=== PATIENT | female | born 1970 | race Asian ===

== ENCOUNTER 2022-03-19 09:33 | Outpatient (REF) | payer OTHER, SELFPAY ==
[2022-03-19 11:08] LABS: MANUAL DIFF FLAG NO
[2022-03-19 11:18] LABS: Basophils Percent Auto 0.7 % (0-2); Eosinophils Absolute Auto 0.1 X10*3/uL (0.0-0.4); Hematocrit 40.5 % (37.0-47.0); Hemoglobin 13.4 g/dl (12.0-16.0); Imm Gran Abs Auto 0.01 X10*3/uL (0.00-0.03); Imm Gran Pct Auto 0.2 % (0.0-0.4); Lymphocytes Absolute Auto 1.6 X10*3/uL (1.2-4.9); Lymphocytes Percent Auto 28.6 % (20-40); Mean Corpuscular HGB Conc 33.1 g/dl (31.0-35.0); Mean Corpuscular Hemoglobin 29.4 pg (27.0-33.0); Mean Corpuscular Volume 88.8 fL (80.0-98.0); Mean Platelet Volume 10.8 fL (9.4-12.3); Monocytes Absolute Auto 0.5 X10*3/uL (0.1-1.2); Neutrophils Absolute Auto 3.4 x10*3/uL (2.0-8.3); Neutrophils Percent Auto 60.5 % (45-73); Platelet Count 218 X10*3/uL (160-400); Red Blood Count 4.56 X10*6/uL (4.20-5.50); Red Cell Distribution Width 13.2 % (11.0-16.0); White Blood Count 5.6 X10*3/uL (4.8-10.8)
[2022-03-19 11:23] LABS: Appearance Urine Clear; Color Urine Yellow; Glucose Urine UA Negative (Negative); Leukocyte Esterase Urine Negative (Negative); Nitrite Urine Negative (Negative); PH 6.5 (5.0-9.0); Specific Gravity - Urine 1.015 (1.005-1.025); Urine Blood Negative (Negative); Urine Ketones Negative (Negative); Urine Protein Negative (Neg-Trace)
[2022-03-19 11:51] LABS: Free T4 (Free Thyroxine) 1.24 ng/dL (0.71-1.85); Thyroid Stimulating Hormone 1.08 uIU/mL (0.32-4.0)
[2022-03-19 11:52] LABS: Alanine Aminotransferase 8 U/L (0-31); Albumin Level 4.5 g/dL (3.5-5.0); Alkaline Phosphatase 52 U/L (39-117); Anion Gap 13 (12-20); Aspartate Amino Transferase 15 U/L (5-31); Bilirubin Total 0.7 mg/dL (0.0-1.0); Blood Urea Nitrogen 14 mg/dL (9-16); Carbon Dioxide 25 mmol/L (22-29); Chloride 107 mmol/L (96-108); Cholesterol 185 mg/dL; Estimated Glomerular Filt Rate > 60; Glucose Fasting 92 mg/dL (60-99); HDL Cholesterol 59 mg/dL; LDL Cholesterol Calculated 113 mg/dl; Potassium 3.7 mmol/L (3.3-5.1); Sodium 141 mmol/L (135-145); Total Protein 7.4 g/dL (6.5-8.0); Triglycerides 68 mg/dL
== END 2022-03-19 09:34 | disposition home or self-care (01) ==
LOC: HO.HMGCLDS 09:33
PROVIDERS: PCP Internal Medicine; Visit Provider Internal Medicine
DX: E78.00 Pure hypercholesterolemia, unspecified (principal); E03.9 Hypothyroidism, unspecified; I10 Essential (primary) hypertension
CPT/HCPCS: 36415; 80053; 80061; 81003; 84439; 84443; 85025

== ENCOUNTER → 2022-12-09 10:48 | Outpatient (BNVA) | payer OTHER, SELFPAY | PROVIDERS: Visit Provider Physician Assistant ==

== ENCOUNTER 2023-01-05 08:13 | Day surgery (SDC) | payer OTHER, SELFPAY ==
[2023-01-01 15:51] VITALS: BMI 23.9
--- NOTE | 2023-01-04 10:11 | P.CONAN_ITS ---
Documented by User: Earnestine Mtz NP 01/04/23 10:11 HPI - Anesthesia Eval Consult details Narrative: 52yo F for Upper Endoscopy PMFSH Active Problems Active Problems: All Active Problems (Updated 12/16/22 @ 15:25 by Mark Painting MD) GERD with esophagitis (Acute) Annual physical exam (Acute) Tendinitis of left rotator cuff (Acute) GERD without esophagitis (Acute) Acquired hypothyroidism (Acute) Pure hypercholesterolemia (Acute) Past Medical History Medical History Acquired hypothyroidism GERD without esophagitis History of benign breast tumor History of Helicobacter pylori infection Pure hypercholesterolemia Tendinitis of left rotator cuff Surgical History Surgical History Hx of colonoscopy Hx of esophagogastroduodenoscopy Social History Social History Housing: House Alcohol intake: never Patient Tobacco Use Status: Never used Tobacco e-Cigarette/Vaping Use: Never Used Second Hand Smoke Exposure: No Use of substances other than those prescribed or required for medical reasons: No Are you DNR?: No Advance Directives: No Advance Directives Information Provided: Yes service: No Current occupational status: employed Cognitive needs: No Hearing needs: No Vision needs: No Meds Allergies Allergy/AdvReac Type Severity Reaction Status Date / Time No Known Allergies Allergy Verified 01/05/23 08:50 Home Medications Medication Instructions Recorded Confirmed Last Taken Type atorvastatin 20 mg tablet 20 mg PO DAILY 06/24/20 01/05/23 Unknown History levothyroxine 112 mcg tablet 112 mcg PO DAILY 06/24/20 01/05/23 Unknown History Exam Exam Date and Time: January 04, 2023 1011 Height,Weight and Vital Signs: Height 5 ft 3 in Weight 61.235 kg Assessment and Plan Assessment Anesthesia Assessment: Chart Reviewed Documented by User: Yanelis Negro MD 01/05/23 10:01 [facility] Active Problems Active Problems: All Active Problems (Updated 01/05/23 @ 09:10 by Yanelis Negro MD) GERD with esophagitis (Acute) Annual physical exam (Acute) Tendinitis of left rotator cuff (Acute) GERD without esophagitis (Acute) Acquired hypothyroidism (Acute) Pure hypercholesterolemia (Acute) Past Medical History Medical History Acquired hypothyroidism GERD without esophagitis History of benign breast tumor History of Helicobacter pylori infection Pure hypercholesterolemia Tendinitis of left rotator cuff Family History Family history of problems with anesthesia: No Surgical History Surgical History Hx of colonoscopy Hx of esophagogastroduodenoscopy History of Problems with Anesthesia: No Social History Social History Housing: House Alcohol intake: never Patient Tobacco Use Status: Never used Tobacco e-Cigarette/Vaping Use: Never Used Second Hand Smoke Exposure: No Use of substances other than those prescribed or required for medical reasons: No Are you DNR?: No Advance Directives: No Advance Directives Information Provided: Yes service: No Current occupational status: employed Cognitive needs: No Hearing needs: No Vision needs: No Meds Allergies Allergy/AdvReac Type Severity Reaction Status Date / Time No Known Allergies Allergy Verified 01/05/23 08:50 Home Medications Medication Instructions Recorded Confirmed Last Taken Type atorvastatin 20 mg tablet 20 mg PO DAILY 06/24/20 01/05/23 Unknown History levothyroxine 112 mcg tablet 112 mcg PO DAILY 06/24/20 01/05/23 Unknown History Exam Height,Weight and Vital Signs: Height 5 ft 3 in Weight 61.235 kg Vital Signs Temp Pulse Resp BP Pulse Ox O2 Del Method 01/05/23 09:06 97.1 F 68 15 140/85 H 98 Room Air Airway Mallampati Class: II TM Dist: >3cm Neck ROM: Full Loose/Missing/Broken Teeth: No (Denies broken, loose, missing teeth) Heart: RRR Lungs: CTAB Assessment and Plan Final Anesthetic Review Family History of Problems with Anesthesia: No History of Problems with Anesthesia: No NPO: Yes ASA Class: II Final Preanesthetic Review: No Changes in Pt Med Stat, Meds/Allgs Chart Reviewed, Consent Obtained/Reviewed and Anes Risks/Benef Reviewed Patient Risk: Low Procedure Risk: Low Assessment/Block/Sedation in SS: Assess/Block/Sedation-SS Anesthetic Plan Anesthetic Plan: MAC: Disposition: Standard PACU
[2023-01-05 09:06] VITALS: BP 140/85; PULSE 68; RESP 15; TEMP 36.2; O2SAT 98
--- NOTE | 2023-01-05 09:11 | MHC.SHP ---
Pre-Procedural Eval Section A Date of Service: 01/05/23 The patient is an INPATIENT: No Changes since office visit: Yes Patient answered all questions; No Cold of Flu in the past 2 weeks, No New Medical Problems and No Changes in Medication The History & Physical has been completed within 30 days and I have reviewed it.: Yes Section B Chief Complaint: abdominal pain/bloating, GERD, burning sensation Allergies: Allergies Allergy/AdvReac Type Severity Reaction Status Date / Time No Known Allergies Allergy Verified 01/05/23 08:50 Plan I have reviewed the history and physical and performed a pertinent physical examination on my patient. No changes have occurred unless specified. Time Spent With Patient Time: Total time managing care of this patient today ____ minutes.
--- NOTE | 2023-01-05 09:29 | W.PM.OPN ---
Operative Note Operative Note Date of Service: 01/05/23 Narrative: FLEXIBLE TRANSORAL UPPER GASTROINTESTINAL ENDOSCOPY WITH BIOPSIES Pre-op diagnosis: abdominal pain/bloating, GERD, burning sensation, atypical chest pain Pt reports she had a negative EGD 2 yrs ago. Post-op diagnosis: GERD, gastritis Endoscopist:Atul Uriostegui MD Anesthesia:?MAC Consent: Indications for the procedure and potential complications of bleeding, perforation, reaction to medications and missed diagnosis were discussed with the patient with the help of a Mandarin maintenance technician 3rd shift and informed consent was obtained. Instrument: Olympus GIF H 190 mid size upper endoscope Monitoring: Vital signs and clinical assessment, continuous EKG monitoring, Pulse oximetry, Carbon Dioxide monitoring and blood pressure monitoring were done throughout the procedure. Procedure: The patient was placed in the left lateral decubitis position and pre-procedure medications were administered and a bite block was placed. The endoscope was inserted into the mouth and advanced under direct vision to the third part of duodenum. A careful inspection was made as the upper endoscope was withdrawn including a retroflexed examination of the proximal stomach; Findings and interventions are described below. Findings: Larynx: Normal Esophagus: GE junction at 36 cms. No esophagitis or Davey's. Biopsies were obtained from proximal esophagus (to check for EOE) and from distal esophagus to check for esophagitis. Stomach: Mild gastric erythema. Biopsies were obtained. Grade 2 flap valve on retroflexed examination of the cardia. Duodenum: Normal bulb and descending duodenum Intervention: Biopsies as noted above Impression and Post Procedure Diagnosis: Endoscopy Findings: ESOPHAGUS: GE junction at 36 cms. No esophagitis or Davey's. Biopsies were obtained from proximal esophagus (to check for EOE) and from distal esophagus to check for esophagitis. STOMACH: Mild antral gastritis DUODENUM: Normal - biopsied to check for celiac sprue Plan: Await pathology results Patient has an appointment on 01/27/23 in the GI Clinic with LAURA Clark . Above findings were reviewed with the patient and GERD handout was given in the discharge area
[2023-01-05] MEDS: Lactated Ringers 1,000 ML 100 ML IVCONT (09:31)
[2023-01-05 10:15] VITALS: BP 109/66; PULSE 57; RESP 16; TEMP 36.6; O2SAT 97
[2023-01-05 10:30] VITALS: BP 130/70; PULSE 53; RESP 16; O2SAT 99
[2023-01-05 10:45] VITALS: BP 137/75; PULSE 53; RESP 16; TEMP 36.2; O2SAT 100
== END 2023-01-05 11:23 | disposition home or self-care (01) ==
PROVIDERS: PCP Internal Medicine; Visit Provider Internal Medicine Gastroenterology
PROC: 0DJ08ZZ Inspection of Upper Intestinal Tract, Via Natural or Artificial Opening Endoscopic (ICD-10-PCS; CPT 43235; principal; 2023-01-05 10:00)
DX: K21.9 Gastro-esophageal reflux disease without esophagitis (principal); K29.70 Gastritis, unspecified, without bleeding; R07.89 Other chest pain; E78.00 Pure hypercholesterolemia, unspecified; Z79.899 Other long term (current) drug therapy
CPT/HCPCS: 43239; 88305; 88342

== ENCOUNTER → 2023-01-05 08:13 | Outpatient (BNV) | payer OTHER, SELFPAY | PROVIDERS: PCP Internal Medicine; Visit Provider Internal Medicine Gastroenterology | DX: K29.70 Gastritis, unspecified, without bleeding (principal); K21.9 Gastro-esophageal reflux disease without esophagitis | CPT/HCPCS: 43239 ==

== ENCOUNTER 2023-01-27 11:51 | Outpatient (AMB) | payer OTHER, SELFPAY ==
--- NOTE | 2023-01-27 11:56 | MHC.OFFVIS ---
Intake Vital Signs 01/27/23 12:00 Height 5 ft 2 in Weight 134 lb BMI 24.5 BP 141/73 H Blood Pressure Location Lt brachial Position Sitting Pulse 71 Intake Visit Reasons: S/p egd-Moody Intake Note: Patient follow up for GERD and EGD results. Patient cc: abdominal pain on and off, and heartburn. Denies any other GI issues. Exterior Interior Specialist Required: Yes Exterior Interior Specialist Name: Nelson [phone] Accompanied by: Self / Same As Patient Allergies No Known Allergies Allergy (Verified 01/27/23 11:56) Medication List - Last Reconciled 01/27/23 by Liana Domingo PA-C atorvastatin 20 mg PO DAILY famotidine 40 mg PO BEDTIME 30 days levothyroxine 112 mcg PO DAILY pantoprazole 40 mg PO DAILY 30 days HPI HPI Comments History of Present Illness Details A 52 y/0o f/u after EGD for reflux- persistent despite ppi and H2 vivian-she does not eat spicy food- reflux-bloating- she is unable to -identify anything specific She is very worried about H pylori she has had in the past. Review procedure report as well as pathology no H pylori Appetite is good she has been eating bland foods No nausea, vomiting, hematemesis, hematochezia fever or chills PFSH Medical History (Updated 01/27/23 @ 12:27 by Liana Domingo PA-C) Acquired hypothyroidism GERD without esophagitis History of benign breast tumor History of Helicobacter pylori infection Pure hypercholesterolemia Tendinitis of left rotator cuff Surgical History Hx of colonoscopy Hx of esophagogastroduodenoscopy Social History Housing: House Alcohol intake: never Patient Tobacco Use Status: Never used Tobacco e-Cigarette/Vaping Use: Never Used Second Hand Smoke Exposure: No service: No Current occupational status: employed Cognitive needs: No Hearing needs: No Vision needs: No Review of Systems Const All systems reviewed & are unremarkable except as noted in HPI and below Card Denies chest pain and Denies dyspnea Resp Denies dyspnea GI Denies abdominal pain, Reports bloating and Reports heartburn Physical Exam Vital Signs: Last Vital Signs Pulse 71 01/27/23 12:00 BP 141/73 H 01/27/23 12:00 BMI result Body Mass Index 24.5 Const General: cooperative, healthy appearing, comfortable and no acute distress Orientation/consciousness: patient oriented x3 Limitations: language barrier Resp Effort & Inspection: normal respiratory effort and able to speak in complete sentences Skin General skin exam: no rashes or lesions noted Neuro General: patient oriented x3 Extrem General: Yes full ROM Psych Appearance: grossly normal and well kempt Mental Status: mental status grossly normal Speech and movement: Normal speech and movement present and Clear speech present Affect: normal affect Attitude: cooperative Thought process: Normal thought process present Thought content: Normal thought content present Results Reviewed Results Reviewed: Name:?Von Barahona Age/Sex: 52/F Attending: Almas Uriostegui MD : 1970 Submitted by: Almas Uriostegui MD Copies to: Mark Painting MD MR #: [id number] ? Status: [facility] Collected: 01/05/23 Location: [facility] Received: 01/05/23 Diagnosis A.? Small bowel, biopsy:? Duodenal mucosa within normal limits. B.? Stomach, antrum, biopsy:? Antral-type mucosa with mild chronic inactive inflammation; no Helicobacter organisms seen. C.? Esophagus, distal, biopsy:? Squamous epithelium within normal limits; no inflammation seen. D.? Esophagus, proximal, biopsy:? Squamous epithelium within normal limits; no inflammation seen. Clinical History Pre-Op Dx:? Abdominal pain bloating, GERD, burning sensation Post-Op Dx: Gastritis and GERD Microscopic Description A-D.? Microscopic sections reviewed.? Immunostain for H. pylori is non-reactive (B). Endoscopy Findings: ESOPHAGUS: GE junction at 36 cms. No esophagitis or Davey's. Biopsies were obtained from proximal esophagus (to check for EOE) and from distal esophagus to check for esophagitis. STOMACH: Mild antral gastritis DUODENUM: Normal - biopsied to check for celiac sprue Plan: Await pathology results Patient has an appointment on 01/27/23 in the GI Clinic with LAURA Clark . Above findings were reviewed with the patient and GERD handout was given in the discharge area Assessment & Plan Assessment & Plan (1) Bloating: Comment: Dietary modifications, food diary Code(s): R14.0 - Abdominal distension (gaseous) Plan: Low FODMAP literature given Plan Stop ppi today May continue pepcid- stop 3 days before HP UBT. Orders: Orders H Pylori Breath Test 2 Weeks A04.8 - Other specified bacterial intestinal infections Patient Instructions: Pleasant 52-year-old female history of H pylori negative on EGD, a presents with reflux, bloating Reviewed procedure report and pathology, opportunity for question We will get H pylori breath test in 2 weeks, she will stop PPI today, she may continue Pepcid and discontinue 3 days prior to you BT. She will be NPO for 1 hour prior to testing Meanwhile she will follow low FODMAP Try to identify and avoid culprits Encouraged to call questions or concerns Coding Level of Care Code Est Pt Level 3 (82867) Diagnoses Bloating R14.0 Time Spent (min) 30 Comment [id number]
[2023-01-27 12:00] VITALS: BP 141/73; PULSE 71; BMI 24.5
== END 2023-01-27 13:56 | disposition home or self-care (01) ==
PROVIDERS: PCP Internal Medicine; Visit Provider Physician Assistant
DX: R14.0 Abdominal distension (gaseous) (principal)
CPT/HCPCS: 99213

== ENCOUNTER → 2023-01-27 11:51 | Outpatient (BNVA) | payer OTHER, SELFPAY | PROVIDERS: PCP Internal Medicine; Visit Provider Physician Assistant ==

== ENCOUNTER 2023-02-10 08:48 | Outpatient (REF) | payer OTHER, SELFPAY ==
[2023-02-12 12:54] LABS: H Pylori Breath Test Negative (Negative)
== END 2023-02-10 08:49 | disposition home or self-care (01) ==
LOC: HO.LNP 08:48
PROVIDERS: PCP Internal Medicine; Visit Provider Physician Assistant
DX: A04.8 Other specified bacterial intestinal infections (principal)
CPT/HCPCS: 83013; 99211

== ENCOUNTER 2023-03-25 09:54 | Outpatient (REF) | payer OTHER, SELFPAY ==
[2023-03-25 13:13] LABS: Appearance Urine Clear; Color Urine Yellow; Glucose Urine UA Negative (Negative); Leukocyte Esterase Urine Negative (Negative); Nitrite Urine Negative (Negative); PH 6.5 (5.0-9.0); UMIC TRIGGER UACC YES; Urine Blood Moderate (2+) (Negative); Urine Ketones Negative (Negative); Urine Protein Negative (Neg-Trace)
[2023-03-25 13:20] LABS: Bacteria Urine None Seen (None Seen); Hyaline Casts Urine 0-2 /LPF (0-2); Squamous Epithelial Cell Urine 0-2 /HPF (0-2); WBC Urine 0-5 /HPF (0-5)
[2023-03-25 13:28] LABS: MANUAL DIFF FLAG NO
[2023-03-25 13:37] LABS: Basophils Absolute Auto 0.1 X10*3/uL (0.0-0.2); Basophils Percent Auto 1.5 % (0-2); Eosinophils Absolute Auto 0.1 X10*3/uL (0.0-0.4); Eosinophils Percent Auto 1.9 % (0-4); Hematocrit 40.1 % (37.0-47.0); Hemoglobin 13.5 g/dl (12.0-16.0); Imm Gran Abs Auto 0.01 X10*3/uL (0.00-0.03); Imm Gran Pct Auto 0.2 % (0.0-0.4); Lymphocytes Absolute Auto 1.5 X10*3/uL (1.2-4.9); Mean Corpuscular HGB Conc 33.7 g/dl (31.0-35.0); Mean Corpuscular Hemoglobin 30.1 pg (27.0-33.0); Mean Corpuscular Volume 89.3 fL (80.0-98.0); Mean Platelet Volume 11.1 fL (9.4-12.3); Monocytes Absolute Auto 0.4 X10*3/uL (0.1-1.2); Neutrophils Absolute Auto 2.1 x10*3/uL (2.0-8.3); Neutrophils Percent Auto 51.4 % (45-73); Platelet Count 204 X10*3/uL (160-400); Red Blood Count 4.49 X10*6/uL (4.20-5.50); Red Cell Distribution Width 14.1 % (11.0-16.0); White Blood Count 4.1 X10*3/uL (4.8-10.8)
[2023-03-25 14:22] LABS: Alanine Aminotransferase 12 U/L (0-31); Albumin Level 4.3 g/dL (3.5-5.0); Alkaline Phosphatase 44 U/L (39-117); Anion Gap 13 (12-20); Aspartate Amino Transferase 16 U/L (5-31); Blood Urea Nitrogen 12 mg/dL (9-16); Carbon Dioxide 24 mmol/L (22-29); Chloride 107 mmol/L (96-108); Cholesterol 147 mg/dL (<200); Estimated Glomerular Filt Rate > 60; Glucose Fasting 86 mg/dL (60-99); HDL Cholesterol 56 mg/dL (>40); LDL Cholesterol Calculated 80 mg/dL (<100); Potassium 3.5 mmol/L (3.3-5.1); Sodium 140 mmol/L (135-145); Total Protein 7.1 g/dL (6.5-8.0); Triglycerides 57 mg/dL (<150)
[2023-03-25 14:24] LABS: Free T4 (Free Thyroxine) 1.28 ng/dL (0.71-1.85); Thyroid Stimulating Hormone 0.25 uIU/mL (0.32-4.0); Vitamin D 25-OH Total 22.9 ng/mL (>30)
== END 2023-03-25 09:55 | disposition home or self-care (01) ==
LOC: HO.HMGCLDS 09:54
PROVIDERS: PCP Internal Medicine; Visit Provider Internal Medicine
DX: E55.9 Vitamin D deficiency, unspecified (principal); E03.9 Hypothyroidism, unspecified; I10 Essential (primary) hypertension; E78.00 Pure hypercholesterolemia, unspecified; R30.0 Dysuria
CPT/HCPCS: 36415; 80053; 80061; 81001; 82306; 84439; 84443; 85025

== ENCOUNTER 2023-05-14 07:33 | Outpatient (AMB) | payer OTHER, SELFPAY ==
[2023-05-14 07:40] VITALS: BP 120/76; PULSE 64; O2SAT 98; BMI 24.1
--- NOTE | 2023-05-14 07:40 | A.OFFPC_ITS ---
Vital Signs 05/14/23 07:40 Height 5 ft 2 in Weight 132 lb BMI 24.1 BP 120/76 Blood Pressure Location Lt brachial Position Sitting Pulse 64 Pulse Source Pulse Oximeter Pulse Oximetry (%) 98 Oxygen Delivery Method Room Air Intake Visit Reasons: Physical exam Allergies No Known Allergies Allergy (Verified 05/14/23 07:57) Medication List - Last Reconciled 05/14/23 by ANNE Gibbs atorvastatin 20 mg PO DAILY levothyroxine 112 mcg PO DAILY Tobacco use date assessed: 12/16/22 Dental Screening Dental Screen Date: 05/14/23 Did you have a dental visit in the last 12 months?: Yes Did you have a dental problem in the last 6 months where you did not have access to dental care?: No Was dental information given to patient?: Patient has dentist HPI HPI Comments History of Present Illness Details 52-year-old female past medical history significant for GERD, acquired hypothyroidism, hypercholesteremia. Patient of Dr. Painting, presents today for physical exam. Patient reports dull epigastric pain at times, especially if she later in the evening. Patient was recently taking oral pantoprazole and famotidine as her recent EGD was unremarkable. Patient also reports right hand numbing sensation when she is doing repetitive motion such as chopping food, or at night. Patient denies any pain, right hand weakness or dropping things. Eye exam: Recommended Pap smear: Follows with Dr. Cortez. Mammogram: Booked in June 2023 Colonoscopy: 2 years ago at [facility], patient reports 10 year follow up. Labs reviewed with patient in office today. [facility] Medical History History of benign breast tumor History of Helicobacter pylori infection Tendinitis of left rotator cuff GERD without esophagitis Acquired hypothyroidism Pure hypercholesterolemia Surgical History Hx of colonoscopy Hx of esophagogastroduodenoscopy Social History Housing: House Alcohol intake: never Patient Tobacco Use Status: Never used Tobacco e-Cigarette/Vaping Use: Never Used Second Hand Smoke Exposure: No service: No Current occupational status: employed Cognitive needs: No Hearing needs: No Vision needs: No Questionnaire PHQ-9 Over the last 2 weeks, how often have you been bothered by any of the following problems? 1. Little interest or pleasure in doing things: not at all 2. Feeling down, depressed, or hopeless: not at all 3. Trouble falling or staying asleep, or sleeping too much: not at all 4. Feeling tired or having little energy: not at all 5. Poor appetite or overeating: not at all 6. Feeling bad about yourself - or that you are a failure or have let yourself or your family down: not at all 7. Trouble concentrating on things, such as reading the newspaper or watching television: not at all 8. Moving or speaking so slowly that other people could have noticed. Or the opposite - being so fidgety or restless that you have been moving around a lot more than usual: not at all 9. Thoughts that you would be better off or of hurting yourself in some way: not at all Total score: 0 Depression Screening Interpretation: Negative Depression Screening Done: Yes [id number] - PHQ-9 Billing: Yes Source: Developed by Drs. Delbert Bartholomew, Tiesha Banda, Kenyon Abernathy and colleagues, with an educational brandie from [employer]. Thrive Questionnaire Date Thrive assessed: 12/16/22 AUDIT C Alcohol Use Questionnaire (AUDIT-C) 1. How often do you have a drink containing alcohol?: Never 3. How often do you have six or more drinks on one occasion?: Never Total Score: 0 Score Reviewed/Action Taken: Yes AJMIE-7 AMB Questionnaire JAMIE-7 Date JAMIE - 7 assessed: 12/16/22 Source: Developed by Drs. Delbert Bartholomew, Tiesha Banda, Kenyon Abernathy and colleagues, with an educational brandie from [employer]. Review of Systems Const Denies chills, Denies fatigue, Denies fever(s) and Denies poor appetite Eyes Denies no additional complaints ENT Reports Normal hearing present Card Denies chest pain, Denies syncope, Denies rapid heart rate and Denies dyspnea Resp Denies cough and Denies dyspnea GI Denies change in stool character, Denies constipation, Denies diarrhea, Denies nausea and Denies vomiting Denies urinary frequency, Denies dysuria and Denies urinary urgency Neuro Reports Normal hearing present, Denies confusion and Denies syncope Psych Denies confusion Endo Denies fatigue Physical exam (Primary Care) Vital Signs: Last Vital Signs Pulse 64 05/14/23 07:40 BP 120/76 05/14/23 07:40 Pulse Ox 98 05/14/23 07:40 Oxygen Delivery Method Room Air 05/14/23 07:40 BMI result Body Mass Index 24.1 Tobacco/Smoking Status: Tobacco use Status Tobacco use date assessed 12/16/22 05/14/23 07:41 Patient Tobacco Use Status Never used Tobacco 05/14/23 07:41 e-Cigarette/Vaping Use Never Used 05/14/23 07:41 PHQ-9: PHQ-9 Score PHQ-9: Total score 0 05/14/23 07:53 Depression Screening Interpretation: Negative Thrive Assessment: Date of Thrive Assessment Date Thrive assessed 12/16/22 05/14/23 07:41 Const General: No confusion Orientation/consciousness: No confusion Neuro General: No confusion Cranial nerves: Yes Normal hearing present Assessment and Plan Assessment & Plan (1) GERD without esophagitis: Code(s): K21.9 - Gastro-esophageal reflux disease without esophagitis Plan: Avoid the foods that cause that, usually spicy foods, tomato products, juices, coffee, soda and foods that you're sensitive to.? After eating do not lie down, allow 3-4 hours before lying down. And keep the head of the bed above 30 degrees to avoid the acid from going up. (2) Pure hypercholesterolemia: Code(s): E78.00 - Pure hypercholesterolemia, unspecified Plan: Continue on atorvastatin. Follow low-cholesterol diet. LDL: 80 (3) Acquired hypothyroidism: Code(s): E03.9 - Hypothyroidism, unspecified Plan: TSH 0.25, repeat TSH level ordered in 1 month (4) Annual physical exam: Code(s): Z00.00 - Encounter for general adult medical examination without abnormal find ings Plan: Follow-up in 1 year for annual exam. (5) Numbness of right hand: Code(s): R20.0 - Anesthesia of skin Plan: Patient reports numbness at times of right hand with repetitive motions. Discussed EMG and nerve conduction test for further evaluation of possible carpal tunnel, using a brace at night and can take [id number] anti- inflammatories as needed if she develops pain. Patient reports she will try wearing right hand brace while sleeping to prevent nerve compression and if she develops any new or worsened symptoms will follow- up for further testing. Plan Follow-up in 6 months. Orders: Orders TSH reflex Free T4 Today R79.89 - Other specified abnormal findings of blood chemistry Coding Level of Care Code Est Pt Prev Care 40-64y(73352) Diagnoses GERD without esophagitis K21.9 Pure hypercholesterolemia E78.00 Acquired hypothyroidism E03.9 Annual physical exam Z00.00 Numbness of right hand R20.0
== END 2023-05-14 08:17 | disposition home or self-care (01) ==
PROVIDERS: PCP Internal Medicine; Visit Provider Nurse Practitioner Family
DX: K21.9 Gastro-esophageal reflux disease without esophagitis (principal); E78.00 Pure hypercholesterolemia, unspecified; E03.9 Hypothyroidism, unspecified; Z00.00 Encounter for general adult medical examination without abnormal findings; R20.0 Anesthesia of skin
CPT/HCPCS: 99396

== ENCOUNTER 2023-06-18 10:02 | Outpatient (REF) | payer OTHER, SELFPAY | END 2023-06-18 10:03 | disposition home or self-care (01) | LOC: HO.HMGCLDS 10:02 | PROVIDERS: PCP Internal Medicine; Visit Provider Nurse Practitioner Family | DX: R94.6 Abnormal results of thyroid function studies (principal) | CPT/HCPCS: 36415; 84443 ==

== ENCOUNTER 2023-09-17 09:47 | Outpatient (AMB) | payer OTHER, SELFPAY ==
--- NOTE | 2023-09-17 09:56 | MHC.PC.OV ---
Vital Signs 09/17/23 10:00 09/17/23 10:40 Height 5 ft 2 in Weight 133 lb 6 oz BMI 24.4 BP 142/98 H 130/80 Blood Pressure Location Lt brachial Lt brachial Position Sitting Sitting Pulse 77 Pulse Source Pulse Oximeter Pulse Oximetry (%) 100 Oxygen Delivery Method Room Air Intake Visit Reasons: Stomach and arm pain Intake Note: The patient is present for the transfer of care from [facility]. Today's concern revolves around left shoulder pain, which the patient describes as originating from the bone and persisting for the past three weeks. [employer] Sports [employer] Required: No Accompanied by: Self / Same As Patient Allergies No Known Allergies Allergy (Verified 09/17/23 10:09) Tobacco use date assessed: 09/17/23 Dental Screening Dental Screen Date: 09/17/23 Did you have a dental visit in the last 12 months?: Yes Did you have a dental problem in the last 6 months where you did not have access to dental care?: No Was dental information given to patient?: Patient has dentist HPI Stomach and arm pain HPI Details Patient comes in today complaining of recurrent shoulder pains (L > R) for the past few weeks Notes that her left upper arm has also been hurting at times and is wondering if this is related to her shoulder or she has a separate problem going on in her left upper arm 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 Uriostegui last year that came out normal except for mild gastritis; biopsies were all negative Adds that she is scheduled to leave for [place] next month and will be gone for about 3 months - is requesting to have her Rx refilled for a 3 months' supply so she will not run out of her meds when [place] is out of the [place] She denies any headaches or dizziness Denies any SOB; notes some left upper chest wall discomfort at times lately - thinks that this may be related to her left shoulder issues but she is not sure; denies any increased SOB No nausea/vomiting, no abdominal pain No change in bowel habits noted PFSH Medical History History of benign breast tumor History of Helicobacter pylori infection Tendinitis of left rotator cuff GERD without esophagitis Acquired hypothyroidism Pure hypercholesterolemia Surgical History Hx of colonoscopy Hx of esophagogastroduodenoscopy Social History Housing: House Alcohol intake: never Patient Tobacco Use Status: Never used Tobacco e-Cigarette/Vaping Use: Never Used Second Hand Smoke Exposure: No service: No Current occupational status: employed Cognitive needs: No Hearing needs: No Vision needs: No Questionnaire PHQ-9 Over the last 2 weeks, how often have you been bothered by any of the following problems? 1. Little interest or pleasure in doing things: not at all 2. Feeling down, depressed, or hopeless: not at all 3. Trouble falling or staying asleep, or sleeping too much: not at all 4. Feeling tired or having little energy: not at all 5. Poor appetite or overeating: not at all 6. Feeling bad about yourself - or that you are a failure or have let yourself or your family down: not at all 7. Trouble concentrating on things, such as reading the newspaper or watching television: not at all 8. Moving or speaking so slowly that other people could have noticed. Or the opposite - being so fidgety or restless that you have been moving around a lot more than usual: not at all 9. Thoughts that you would be better off or of hurting yourself in some way: not at all Total score: 0 Depression Screening Interpretation: Negative Depression Screening Done: Yes 02937 - PHQ-9 Billing: Yes Source: Developed by Drs. Delbert Bartholomew, Tiesha Banda, Kenyon Abernathy and colleagues, with an educational brandie from [employer]. Thrive Questionnaire Date Thrive assessed: 09/17/23 I am a: Patient What is your living situation today?: I have a steady place to live Within the past 12 months, did the food you bought not last and you didn't have the money to get more?: Never true Within the past 12 months, did you worry whether your food would run out before you got money to buy more?: Never true Do you have trouble paying for medicines?: No Do you have trouble getting transportation to medical appointments?: No Do you have trouble paying your heating and electricity bill?: No Do you have trouble taking care of your child, family member or friend?: No Do you have trouble with day-to-day activities such as bathing, preparing meals, shopping, managing finances, etc.?: No Are you currently unemployed and looking for a job?: No Are you interested in more education?: No Please select the resources that you would like help with: None Currently or been in a relationship where the following occur: no concerns reported THRIVE Score: 0 AUDIT C Alcohol Use Questionnaire (AUDIT-C) 1. How often do you have a drink containing alcohol?: Never 3. How often do you have six or more drinks on one occasion?: Never Total Score: 0 Score Reviewed/Action Taken: Yes JAMIE-7 AMB Questionnaire JAMIE-7 Date JAMIE - 7 assessed: 09/17/23 Feeling nervous, anxious, or on edge: 0 = Not at all Not being able to stop or control worryin = Not at all Worrying too much about different things: 0 = Not at all Trouble relaxin = Not at all Being so restless that it is hard to sit still: 0 = Not at all Becoming easily annoyed or irritable: 0 = Not at all Feeling afraid as if something awful might happen: 0 = Not at all Total JAMIE-7 score (0-4 normal; 5-9 mild; 10-14 moderate; 15-21 severe): 0 Source: Developed by Drs. Delbert Bartholomew, Tiesha Banda, Kenyon Abernathy and colleagues, with an educational brandie from [employer]. JAMIE-7 Assessment Billing JAMIE-7 Assessment Tool: JAMIE-7 Assessment 08159 Review of Systems Const Denies chills, Denies fatigue, Denies fever(s) and Denies headache(s) ENT Denies dysphagia, Denies dizziness, Denies otalgia, Denies headache(s), Denies neck pain, Denies odynophagia and Denies sore throat Card Denies chest pain, Denies palpitations and Denies dyspnea Resp Denies cough and Denies dyspnea GI Denies abdominal pain, Denies constipation, Denies dysphagia, Reports heartburn (on and off, mostly at night (mild)), Denies diarrhea, Denies nausea, Denies odynophagia and Denies vomiting Denies difficulty voiding, Denies nocturia, Denies dysuria and Denies urinary urgency Musc Reports arthralgias (on and off in both shoulders, L > R) and Denies neck pain Skin/Breast Denies rash Neuro Denies dizziness and Denies headache(s) Endo Denies fatigue and Denies palpitations Physical exam (Primary Care) Vital Signs: Last Vital Signs Pulse 77 09/17/23 10:00 BP 142/98 H 09/17/23 10:00 Pulse Ox 100 09/17/23 10:00 Oxygen Delivery Method Room Air 09/17/23 10:00 BMI result Body Mass Index 24.4 Tobacco/Smoking Status: Tobacco use Status Tobacco use date assessed 09/17/23 09/17/23 10:10 Patient Tobacco Use Status Never used Tobacco 09/17/23 09:56 e-Cigarette/Vaping Use Never Used 09/17/23 09:56 PHQ-9: PHQ-9 Score PHQ-9: Total score 0 09/17/23 10:10 Depression Screening Interpretation: Negative Thrive Assessment: Date of Thrive Assessment Date Thrive assessed 09/17/23 09/17/23 10:10 Currently or been in a relationship where the following occur: no concerns reported Const General: no acute distress and alert HENMT Throat: Yes posterior oropharynx normal and Yes tonsils normal (no TP congestion) Neck Neck: Yes no lymphadenopathy and Yes supple Resp Auscultation: clear to auscultation bilaterally, no rales and no wheezes Cardio Rate: regular rate Rhythm: regular rhythm Heart sounds: no murmurs GI Palpation (GI): Soft to palpation and nontender Auscultation: normal bowel sounds General: Yes no CVA tenderness Back/Spine/Pelvis Back: no CVA tenderness Skin Rashes: no rashes Extrem General: Yes no clubbing, cyanosis or edema Right upper extremity: full ROM and shoulder/upper arm Details: tenderness (mild) Location: of the A-C joint Left upper extremity: full ROM and shoulder/upper arm Details: tenderness (mild) Location: of the A-C joint Assessment and Plan Assessment & Plan (1) Pure hypercholesterolemia: Code(s): E78.00 - Pure hypercholesterolemia, unspecified Plan: Reinforced low-cholesterol diet Continue Atorvastatin 20 mg QD (Rx refilled) Will have her recheck her labs and fasting lipids in 6 months for follow up (2) Acquired hypothyroidism: Code(s): E03.9 - Hypothyroidism, unspecified Plan: Continue Levothyroxine 112 mcg QD (Rx refilled) Will recheck TFTs in 6 months for follow up (3) GERD without esophagitis: Code(s): K21.9 - Gastro-esophageal reflux disease without esophagitis Plan: Dietary restrictions reinforced EGD done with Dr. Uriostegui at [facility] in December 2022 came out normal except for mild gastritis; biopsies were all negative She took Pantoprazole 40 mg QD and Famotidine 40 mg Q HS for a couple of months and stopped taking them back in May 2023 when her symptoms supposedly cleared up but she reports experiencing recurrent heartburns at night again recently She is advised that she can start taking her Rx PRN for now and is advised to call if her symptoms persist despite Rx (4) Elevated blood pressure reading: Code(s): R03.0 - Elevated blood-pressure reading, without diagnosis of hypertension Plan: Her initial BP was high today and she voiced her concerns about this as she has (+) family Hx of HTN Repeat BP showed improvement of her BP to 130/80 mm - have advised systolic BP should ideally be at 120 mm or less Discussed also low sodium diet and she is advised to monitor her blood pressure regularly in the meantime - Rx for BP monitor sent to pharmacy, per request (5) Bilateral shoulder pain: Code(s): M25.511 - Pain in right shoulder; M25.512 - Pain in left shoulder Qualifiers: Chronicity: acute Qualified Code(s): M25.511 - Pain in right shoulder; M25.512 - Pain in left shoulder Plan: Advised that her shoulder symptoms appear consistent with tendinitis, especially in her line of work Will send her for shoulder x-rays for further evaluation; per request, will also send her for chest x-rays although reassured her that her left upper chest symptoms are most likely referred pain from her shoulder Is advised that she can take some OTC Tylenol PRN for pain if needed Plan Follow up in 6 months Orders: Orders XR shoulder LT min 2V Today M25.512 - Pain in left shoulder XR shoulder RT min 2V Today M25.511 - Pain in right shoulder Complete Blood Count Auto Diff 6 Months D64.9 - Anemia, unspecified Lipid Panel 6 Months E78.00 - Pure hypercholesterolemia, unspecified Thyroid Stimulating Hormone 6 Months E03.9 - Hypothyroidism, unspecified Free T4 (Free Thyroxine) 6 Months E03.9 - Hypothyroidism, unspecified UA CC w/rflx Micro + Cult 6 Months R30.0 - Dysuria Vitamin D 25-OH Total 6 Months E55.9 - Vitamin D deficiency, unspecified XR chest 2V Today J98.8 - Other specified respiratory disorders Comprehensive [place]. Panel Fast 6 Months E78.00 - Pure hypercholesterolemia, unspecified Medications: New blood pressure monitor As directed 1 ea 0RF R03.0 - Elevated blood-pressure reading, without diagnosis of hypertension Changed From levothyroxine 112 mcg PO DAILY E03.9 - Hypothyroidism, unspecified To levothyroxine 112 mcg PO DAILY 90 days 90 tabs 1RF E03.9 - Hypothyroidism, unspecified From atorvastatin 20 mg PO DAILY E78.00 - Pure hypercholesterolemia, unspecified To atorvastatin 20 mg PO DAILY 90 days 90 tabs 1RF E78.00 - Pure hypercholesterolemia, unspecified Coding Level of Care Code Est Pt Level 4 (84865) Diagnoses Pure hypercholesterolemia E78.00 Acquired hypothyroidism E03.9 GERD without esophagitis K21.9 Elevated blood pressure reading R03.0 Acute pain of both shoulders M25.511; M25.512 Chronicity: acute Additional Codes JAMIE-7 Assessment Billing - JAMIE-7 Assessment Tool: JAMIE-7 Assessment 06335 ([id number])
[2023-09-17 10:00] VITALS: BP 142/98; PULSE 77; O2SAT 100; BMI 24.4
[2023-09-17 10:40] VITALS: BP 130/80
== END 2023-09-17 10:43 | disposition home or self-care (01) ==
PROVIDERS: PCP Internal Medicine; Visit Provider Internal Medicine
DX: E78.00 Pure hypercholesterolemia, unspecified (principal); E03.9 Hypothyroidism, unspecified; K21.9 Gastro-esophageal reflux disease without esophagitis; R03.0 Elevated blood-pressure reading, without diagnosis of hypertension; M25.511 Pain in right shoulder; M25.512 Pain in left shoulder
CPT/HCPCS: 99214

== ENCOUNTER 2023-09-17 10:47 | Outpatient (REF) | payer OTHER, SELFPAY ==
--- NOTE | ~2023-09-17 | XR_ITS ---
EXAMINATION: X-ray bilateral shoulders CLINICAL INFORMATION: Bilateral shoulder pain COMPARISON: None TECHNIQUE: Left shoulder 4 views. Right shoulder 4 views. FINDINGS: Left shoulder: There is mild superior positioning of the distal clavicle with respect to the acromium. This could be related to positioning/technique versus AC joint sprain. No acute fracture or dislocation is otherwise seen. Glenohumeral joint space is maintained. No abnormal soft tissue calcification. No suspicious findings in the visualized lungs. Right shoulder: No acute fracture or dislocation. Joint spaces are maintained. No abnormal soft tissue calcification. No suspicious findings in the visualized lungs. No abnormal soft tissue calcification. XR/XR shoulder RT min 2V IMPRESSION: Left shoulder: Apparent mild malalignment at the acromioclavicular joint, could reflect AC joint sprain versus related to positioning/technique. Right shoulder: No acute findings.
--- NOTE | ~2023-09-17 | XR_ITS ---
EXAMINATION: X-ray bilateral shoulders CLINICAL INFORMATION: Bilateral shoulder pain COMPARISON: None TECHNIQUE: Left shoulder 4 views. Right shoulder 4 views. FINDINGS: Left shoulder: There is mild superior positioning of the distal clavicle with respect to the acromium. This could be related to positioning/technique versus AC joint sprain. No acute fracture or dislocation is otherwise seen. Glenohumeral joint space is maintained. No abnormal soft tissue calcification. No suspicious findings in the visualized lungs. Right shoulder: No acute fracture or dislocation. Joint spaces are maintained. No abnormal soft tissue calcification. No suspicious findings in the visualized lungs. No abnormal soft tissue calcification. XR/XR shoulder LT min 2V IMPRESSION: Left shoulder: Apparent mild malalignment at the acromioclavicular joint, could reflect AC joint sprain versus related to positioning/technique. Right shoulder: No acute findings.
--- NOTE | ~2023-09-17 | XR_ITS ---
EXAMINATION: XR CHEST CLINICAL INFORMATION: Pain in the chest, cough COMPARISON: None available. TECHNIQUE: 2 views of the chest were obtained. FINDINGS: No airspace consolidation or pneumothorax seen. Hilar regions and pulmonary vascularity within normal limits. Pleural surfaces appear to be clear. Thoracic spines appear unremarkable without any evidence for fracture. XR/XR chest 2V IMPRESSION: No evidence for acute process.
== END 2023-09-17 10:48 | disposition home or self-care (01) ==
LOC: HO.XRAY 10:47
PROVIDERS: PCP Internal Medicine; Visit Provider Internal Medicine
DX: M25.512 Pain in left shoulder (principal); M25.511 Pain in right shoulder; J98.8 Other specified respiratory disorders
CPT/HCPCS: 71046; 73030

== ENCOUNTER 2024-02-23 21:39 | Emergency (ER) | payer OTHER, SELFPAY ==
--- NOTE | ~2024-02-23 | XR_ITS ---
EXAMINATION: XR LUMBOSACRAL SPINE CLINICAL INFORMATION: Lower back pain COMPARISON: None available. TECHNIQUE: Three views of the lumbosacral spine. FINDINGS: There is anatomic alignment of the lumbar vertebral bodies and posterior elements. Vertebral body heights are maintained. Intervertebral disc spaces also appear preserved. No acute fracture is seen. Sacroiliac joints appear intact. XR/XR lumbar spine 2-3V IMPRESSION: No acute findings identified. Electronically signed by: Ronnie Dickson MD 02/24/2024 01:08 AM EDT
[2024-02-23 21:43] VITALS: BP 153/89; PULSE 77; RESP 16; TEMP 36.1; O2SAT 97; BMI 24.7
[2024-02-23 23:11] LABS: MANUAL DIFF FLAG NO
[2024-02-23 23:12] LABS: Basophils Percent Auto 0.6 % (0-2); Eosinophils Absolute Auto 0.1 X10*3/uL (0.0-0.4); Eosinophils Percent Auto 1.9 % (0-4); Hematocrit 38.9 % (37.0-47.0); Hemoglobin 13.5 g/dl (12.0-16.0); Imm Gran Abs Auto 0.01 X10*3/uL (0.00-0.03); Imm Gran Pct Auto 0.2 % (0.0-0.4); Lymphocytes Absolute Auto 1.8 X10*3/uL (1.2-4.9); Lymphocytes Percent Auto 28.4 % (20-40); Mean Corpuscular HGB Conc 34.7 g/dl (31.0-35.0); Mean Corpuscular Hemoglobin 31.3 pg (27.0-33.0); Mean Platelet Volume 9.7 fL (9.4-12.3); Monocytes Absolute Auto 0.7 X10*3/uL (0.1-1.2); Monocytes Percent Auto 10.4 % (2-11); Neutrophils Absolute Auto 3.8 x10*3/uL (2.0-8.3); Neutrophils Percent Auto 58.5 % (45-73); Platelet Count 176 X10*3/uL (160-400); Red Blood Count 4.32 X10*6/uL (4.20-5.50); Red Cell Distribution Width 12.1 % (11.0-16.0); White Blood Count 6.5 X10*3/uL (4.8-10.8)
[2024-02-23 23:26] LABS: Alanine Aminotransferase 27 U/L (0-31); Alkaline Phosphatase 65 U/L (39-117); Anion Gap 11 (12-20); Aspartate Amino Transferase 23 U/L (5-31); Bilirubin Total 0.4 mg/dL (0.0-1.0); Blood Urea Nitrogen 16 mg/dL (9-16); Calcium 9.2 mg/dL (8.4-10.2); Carbon Dioxide 25 mmol/L (22-29); Chloride 108 mmol/L (96-108); Creatinine Clr Calc Pharmacy 86.2; Estimated Glomerular Filt Rate > 60; Glucose Random 107 mg/dL (60-115); Potassium 3.5 mmol/L (3.3-5.1); Sodium 140 mmol/L (135-145); Total Protein 6.7 g/dL (6.5-8.0)
[2024-02-23 23:50] LABS: Appearance Urine Clear; Color Urine Yellow; Glucose Urine UA Negative (Negative); Leukocyte Esterase Urine Negative (Negative); Nitrite Urine Negative (Negative); PH 6.5 (5.0-9.0); Specific Gravity - Urine 1.015 (1.005-1.025); UMIC TRIGGER UACC YES; Urine Blood Trace (Negative); Urine Ketones Negative (Negative); Urine Protein Negative (Neg-Trace)
[2024-02-23 23:53] LABS: UPreg QC Valid YES; Urine Pregnancy NEGATIVE (NEGATIVE)
[2024-02-23 23:55] LABS: Bacteria Urine None Seen (None Seen); Hyaline Casts Urine 0-2 /LPF (0-2); RBC Urine 0-2 /HPF (0-2); Squamous Epithelial Cell Urine 0-2 /HPF (0-2); WBC Urine 0-5 /HPF (0-5)
--- NOTE | 2024-02-24 00:13 | ED_ITS ---
HPI - General Adult General Chief complaint: Back Pain/Injury Stated complaint: back pain Time Seen by Provider: 02/23/24 23:31 Source: patient, RN notes reviewed and old records reviewed Mode of arrival: ambulatory Limitations: no limitations History of Present Illness ED Provider: Sherice CRUM narrative: 53-year-old female presents for evaluation of left lower back pain. Patient reports that her pain started yesterday morning. 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 She states that her pain yesterday was gradually worsened throughout the day. Today her pain is significantly worse with ambulation or any kind of movement She denies any numbness, tingling. She has no difficulty urinating She denies any history of back pain Her pain is 8/10 at worst and stabbing in nature Her pain radiates down into her left leg Related Data Previous Rx's ?Medication ?Instructions ?Recorded atorvastatin 20 mg tablet 20 mg PO DAILY 90 days #90 tabs 09/17/23 blood pressure monitor #1 ea 09/17/23 levothyroxine 112 mcg tablet 112 mcg PO DAILY 90 days #90 tabs 09/17/23 cyclobenzaprine 10 mg tablet 10 mg PO TID PRN muscle spasm #15 02/24/24 tabs dexamethasone 4 mg tablet 4 mg PO BID #6 tabs 02/24/24 Allergies Allergy/AdvReac Type Severity Reaction Status Date / Time No Known Allergies Allergy Verified 02/23/24 21:49 Review of Systems 2 Constitutional: Constitutional: Denies body ache(s), Denies chills, Denies fever(s) and Denies frequent falls ENT: Denies vertigo Cardiovascular: Cardiovascular: Denies chest pain and Denies dyspnea Respiratory: Respiratory: Denies cough and Denies dyspnea Gastrointestinal: Gastrointestinal: Denies abdominal pain, Denies nausea and Denies vomiting Genitourinary: Genitourinary: Denies hematuria Musculoskeletal: Musculoskeletal: Reports back pain, Denies arthralgias, Denies joint swelling, Denies limited range of motion, Denies muscle weakness, Denies numbness, Reports radiating pain into limb, Reports stiffness and Denies tingling Integumentary/Breasts: Skin/Breast: Denies rash Neurologic: Denies vertigo, Denies frequent falls, Denies numbness and Denies tingling PMFSH Past Medical History Medical History History of benign breast tumor History of Helicobacter pylori infection Tendinitis of left rotator cuff GERD without esophagitis Acquired hypothyroidism Pure hypercholesterolemia Surgical History Hx of colonoscopy Hx of esophagogastroduodenoscopy Social History Social History Housing: House Alcohol intake: never Patient Tobacco Use Status: Never used Tobacco Smoked in Last 30 Days: No e-Cigarette/Vaping Use: Never Used Second Hand Smoke Exposure: No Use of substances other than those prescribed or required for medical reasons: No Advance Directives: No Advance Directives Information Provided: No Patient : No service: No Current occupational status: employed Cognitive needs: No Hearing needs: No Vision needs: No Physical Exam ED Vital Signs: Vital Signs - 24 hr 02/23/24 21:43 02/24/24 00:54 02/24/24 01:41 Temperature 96.9 F 97.9 F 97.9 F Pulse Rate 77 60 60 Respiratory Rate 16 18 18 Blood Pressure 153/89 H 129/72 129/72 Pulse Oximetry 97 98 98 Oxygen Delivery Method Room Air Room Air Room Air BMI result Body Mass Index 24.7 Const General: healthy appearing, comfortable, no acute distress, alert and awake Nutritional Appearance: well nourished Orientation/consciousness: patient oriented x3 HENMT Head: Yes normocephalic and Yes atraumatic Eyes Eyelids: Yes eyelids normal Conjunctivae: conjunctivae normal Sclerae: sclerae normal Corneas: corneas normal Pupils: Equal, round and reactive pupils present EOM: EOMs intact bilaterally Neck Neck: Yes full ROM Resp Effort & Inspection: normal respiratory effort, able to speak in complete sentences and not labored GI Inspection: No distended Palpation (GI): Soft to palpation, not firm, nontender, no guarding and not rigid Back/Spine/Pelvis Other: Tenderness in the left lumbar paraspinous region. No vertebral tenderness, no step-offs or deformities. Straight leg raise positive on the left Skin General skin exam: elasticity normal Neuro General: patient oriented x3 Cranial nerves: Yes Equal, round and reactive pupils present and Yes Bilaterally intact EOM present Cognition (Neuro): normal cognition Motor exam (neuro): 5/5 motor strength present throughout Extrem Other: Moving all extremities well without any obvious deformities Course Reevaluation(s) Reevaluation #1: Patient reports feeling better but still has some pain, she no longer has pain radiating down her left leg. She is stable for discharge at this time. Time: 01:22 Medications Administered Discontinued Medications Generic Name Dose Route Start Last Admin Trade Name Tana PRN Reason Stop Dose Admin Dexamethasone Sodium Phosphate 10 mg 02/24/24 00:07 02/24/24 00:20 Dexamethasone Sod Phosphate 10 Mg/Ml Vial IVPUSH 02/24/24 00:08 10 mg ONCE ONE Administration Ketorolac Tromethamine 30 mg 02/24/24 00:07 02/24/24 00:20 Ketorolac Tromethamine 30 Mg/Ml Vial IVPUSH 02/24/24 00:08 30 mg ONCE ONE Administration Medical Decision Making Medical Decision Making [facility] Narrative: 53-year-old female presents for evaluation of lower back pain. She denies any specific trauma but reports that her pain started after heavy lifting. Her clinical exam is consistent with sciatica. She has no warning signs for cauda equina syndrome. She does have trace blood in her urine, however she has no signs or symptoms. She has no flank pain her pain 8 rates down into her leg not up into her left flank. Her pain is very reproducible on exam. Most likely musculoskeletal in origin, I have a low suspicion for obstructive uropathy. I did discuss the hematuria with the patient. Plan for x-ray lumbar spine, Toradol and dexamethasone Differential Diagnosis Differential Diagnoses: The differential diagnosis associated with the presentation includes Sciatica Muscle strain Radiculopathy Low back pain Obstructive uropathy less likely Lab Data [facility] Lab Attestation statement: I reviewed the patient's lab results. No leukocytosis or anemia. Normal platelet count. No electrolyte abnormalities 02/23/24 23:01 02/23/24 23:01 Labs: Lab Results 02/23/24 02/23/24 02/23/24 Range/Units 23:01 23:35 23:36 WBC 6.5 (4.8-10.8) X10*3/uL RBC 4.32 (4.20-5.50) X10*6/uL Hgb 13.5 (12.0-16.0) g/dl Hct 38.9 (37.0-47.0) % MCV 90.0 (80.0-98.0) fL MCH 31.3 (27.0-33.0) pg MCHC 34.7 (31.0-35.0) g/dl RDW 12.1 (11.0-16.0) % Plt Count 176 (160-400) X10*3/uL MPV 9.7 (9.4-12.3) fL Immature Gran % (Auto) 0.2 (0.0-0.4) % Neut % (Auto) 58.5 (45-73) % Lymph % (Auto) 28.4 (20-40) % [place] % (Auto) 10.4 (2-11) % Eos % (Auto) 1.9 (0-4) % Baso % (Auto) 0.6 (0-2) % Lymph # (Auto) 1.8 (1.2-4.9) X10*3/uL [place] # (Auto) 0.7 (0.1-1.2) X10*3/uL Eos # (Auto) 0.1 (0.0-0.4) X10*3/uL Baso # (Auto) 0.0 (0.0-0.2) X10*3/uL Abs Immat Gran (auto) 0.01 (0.00-0.03) X10*3/uL Absolute Neuts (auto) 3.8 (2.0-8.3) x10*3/uL Absolute Nucleated RBC 0.000 (0.0-0.012) X10*3/uL Nucleated RBC % (auto) 0.0 (0.0-0.2) /100WBC Sodium 140 (135-145) mmol/L Potassium 3.5 (3.3-5.1) mmol/L Chloride 108 (96-108) mmol/L Carbon Dioxide 25 (22-29) mmol/L Anion Gap 11 L (12-20) BUN 16 (9-16) mg/dL Creatinine 0.65 (0.5-1.4) mg/dL Estim Creat Clear Calc 86.2 Estimated GFR > 60 Random Glucose 107 (60-115) mg/dL Calcium 9.2 (8.4-10.2) mg/dL Total Bilirubin 0.4 (0.0-1.0) mg/dL AST 23 (5-31) U/L ALT 27 (0-31) U/L Alkaline Phosphatase 65 (39-117) U/L Total Protein 6.7 (6.5-8.0) g/dL Albumin 4.0 (3.5-5.0) g/dL Urine Color Yellow Urine Appearance Clear Urine pH 6.5 (5.0-9.0) Ur Specific [place] 1.015 (1.005-1.025) Urine Protein Negative (Neg-Trace) mg/dL Urine Glucose (UA) Negative (Negative) mg/dL Urine Ketones Negative (Negative) mg/dL Urine Blood Trace H (Negative) Urine Nitrite Negative (Negative) Ur Leukocyte Esterase Negative (Negative) Urine RBC 0-2 (0-2) /HPF Urine WBC 0-5 (0-5) /HPF Ur Squamous Epith Cells 0-2 (0-2) /HPF Urine Bacteria None Seen (None Seen) Hyaline Casts 0-2 (0-2) /LPF Urine Test NEGATIVE (NEGATIVE) Radiology Impression Discussion of test interpretation with radiology: I have reviewed the radiologist's reading. Radiologist Impression: FINDINGS: There is anatomic alignment of the lumbar vertebral bodies and posterior elements. Vertebral body heights are maintained. Intervertebral disc spaces also appear preserved. No acute fracture is seen. Sacroiliac joints appear intact. XR/XR lumbar spine 2-3V IMPRESSION: No acute findings identified. Discharge Plan Discharge Clinical Impression: Acute bilateral low back pain with left-sided sciatica Patient Disposition: Home, Self-Care Instructions: Sciatica (ED) Additional Instructions: Your x-ray did not show any significant abnormalities. Your pain is most likely due to a pinched nerve You may use ibuprofen/Tylenol for pain Take dexamethasone twice daily for the next 3 days You may use cyclobenzaprine as needed for muscle spasms. This may make you drowsy, do not drink alcohol or drive after taking it Prescriptions: New dexamethasone 4 mg tablet 4 mg PO BID Qty: 6 0RF cyclobenzaprine 10 mg tablet 10 mg PO TID PRN (Reason: muscle spasm) Qty: 15 0RF No Action atorvastatin 20 mg tablet 20 mg PO DAILY 90 Days Qty: 90 1RF levothyroxine 112 mcg tablet 112 mcg PO DAILY 90 Days Qty: 90 1RF (DME) blood pressure monitor Kit See Rx Instructions .ROUTE .MEDSUPPLY Qty: 1 0RF Rx Instructions: As directed Stand Alone Forms: Work/School Release Interventions: ED Discharge Assessment Last Done: 02/24/24 01:41 Discharge Date/Time: 02/24/24 01:41 Print Language: Rodolfo Yor[place]
[2024-02-24] MEDS: Ketorolac Tromethamine 30 MG/ML VIAL IVPUSH (00:20)
[2024-02-24] MEDS: dexAMETHasone sod phosphate 10 MG/ML VIAL IVPUSH (00:20)
--- NOTE | 2024-02-24 00:47 | PC.NURSE ---
late entry. this rn assumed care of pt, pt a&ox4, respirations even and unlabored. pt reporting 5/10 left flank pain at this time, pt medicated per aug. xray pending.
[2024-02-24 00:54] VITALS: BP 129/72; PULSE 60; RESP 18; TEMP 36.6; O2SAT 98
[2024-02-24 01:41] VITALS: BP 129/72; PULSE 60; RESP 18; TEMP 36.6; O2SAT 98
== END 2024-02-24 01:41 | disposition home or self-care (01) ==
PROVIDERS: Emergency Provider Emergency Medicine; PCP Internal Medicine
DX: M54.42 Lumbago with sciatica, left side (principal); Z79.899 Other long term (current) drug therapy
CPT/HCPCS: 36415; 72100; 80053; 81001; 81025; 85025; 96374; 96375; 99284; J1100; J1885